=== PATIENT | male | born 1985 | race Caucasian/White ===

== ENCOUNTER 2016-08-23 20:45 | Emergency (ER) | payer OTHER ==
[2016-08-23] MEDS ORDERED: DEXAMETHASONE 10 MG/ML VIAL PO STA (22:48)
[2016-08-23] MEDS ORDERED: CHERRY SYRUP 10 ML UDC PO ONE (22:50)
[2016-08-23] MEDS ORDERED: DEXAMETHASONE 10 MG/ML VIAL ONE (22:51)
[2016-08-23 23:05] LABS: RAPID STREP SCREEN REAGENT QC YELLOW (YELLOW)
[2016-08-23 23:12] VITALS: BP 147/93
[2016-08-23] MEDS ORDERED: AZITHROMYCIN 250 MG TABLET PO STA (23:13)
--- NOTE | 2016-08-23 23:15 | ED Physician Documentation ---
History of Present Illness - Stated complaint Stated Complaint: EAR PX - Chief complaint Chief Complaint: General - History obtained from History obtained from: Patient - History of Present Illness Timing: How many days ago (3) Pain level max: 7 Pain level now: 5 Improved by: motrin Worsened by: temperature, cold air - Additonal information Additional information: R ear pain for several days. subjective fever. +nasal congestion. no cough Review of Systems Nose: reports: Rhinorrhea / runny nose, Congestion GI: denies: Abdominal Pain, Vomiting, Diarrhea Skin: denies: Rash Musculoskeletal: denies: Neck pain, Back pain Neurologic: denies: Headache PD PAST MEDICAL HISTORY - Past Medical History Past Medical History: No - Present Medications Home Medications: Ambulatory Orders Medication Instructions Recorded Confirmed Azithromycin [Zithromax] 250 mg PO DAILY #4 tablet 08/23/16 Ibuprofen [Motrin] 400 mg PO DAILY 08/23/16 08/23/16 - Allergies Allergies/Adverse Reactions: Allergies Allergy/AdvReac Type Severity Reaction Status Date / Time No Known Drug Allergies Allergy Verified 08/23/16 20:51 - Social History Does the pt smoke?: No Smoking Status: Never smoker Does the pt drink ETOH?: Yes Does the pt have substance abuse?: No - Immunizations Immunizations are current?: Yes - POLST Patient has POLST: No PD ED PE NORMAL - Vitals Vital signs reviewed: Yes - General General: Alert and oriented X 3, No acute distress - HEENT HEENT: Moist mucous membranes, Other (B TM - erythematous, dull, bulging with loss of landmarks. + fluid. Posterior oropharyngeal erythema without tonsillar exudates. Uvula midline.) - Neck Neck: Supple, no meningeal sign, No adenopathy - Cardiac Cardiac: RRR, Strong equal pulses - Respiratory Respiratory: No respiratory distress, Clear bilaterally - Abdomen Abdomen: Soft, Non tender - Derm Derm: Warm and dry, No rash - Neuro Neuro: Alert and oriented X 3 - Psych Psych: Normal mood, Normal affect Results - Vitals Vitals: Oxygen O2 Source Room air - Labs Labs: Microbiology 08/23/16 22:40 Group A Strep Throat Culture - Preliminary Throat Laboratory Tests 08/23/16 22:40 Group A Strep Rapid Negative PD MEDICAL DECISION MAKING - ED course Complexity details: considered differential, d/w patient ED course: Patient is a 30-year-old male who presents to the emergency department with what appears to be bilateral acute otitis media. Strep swab was negative. Tolerating p.o. without difficulty. Well-appearing, nontoxic. Will place on antibiotics and follow-up with his doctor. Patient counseled regarding signs and symptoms for which I believe and urgent re-evaluation would be necessary. Patient with good understanding of and agreement to plan and is comfortable going home at this time This document was made in part using voice recognition software. While efforts are made to proofread this document, sound alike and grammatical errors may occur. No mastoiditis. No otitis externa Departure - Departure Disposition: Home, Self Care Clinical Impression: Otitis media Qualifiers: Otitis media type: suppurative Laterality: bilateral Chronicity: acute Recurrence: not specified as recurrent Spontaneous tympanic membrane rupture: without spontaneous rupture Qualified Code(s): H66.003 - Acute suppurative otitis media without spontaneous rupture of ear drum, bilateral Condition: Good Instructions: ED Otitis Media Acute Adult Follow-Up: your,doctor in 1 week [Other] Prescriptions: Azithromycin [Zithromax] 250 mg PO DAILY #4 tablet Comments: Take all antibiotics until gone. Return if you worsen. Discharge Date/Time: 08/23/16 23:22
[2016-08-23] MEDS ORDERED: AZITHROMYCIN 250 MG TABLET PO ONE (23:18)
== END 2016-08-23 23:22 | disposition home or self-care (01) ==
LOC: ED 20:45
DX: H66.003 Acute suppurative otitis media without spontaneous rupture of ear drum, bilateral (principal)
CPT/HCPCS: 87070; 87430; 99283; A9270